=== PATIENT | female | born 1955 | race Caucasian/White ===

== ENCOUNTER 2023-07-06 20:32 | Inpatient (IN) | payer OTHER ==
[2023-07-06 23:21] LABS: #Basophils 0.09 10x3/uL (0.0-0.2); %Basophils 0.4 % (0.0-1.0); %Eosinophils 1.6 % (0.0-10.0); %Lymphocytes 7.6 % (21.0-51.0); %Monocytes 6.8 % (0.0-10.0); %Neutrophils 82.8 % (42.0-75.0); Hematocrit 33.7 % (36.0-47.0); Hemoglobin 11.5 g/dL (12.0-16.0); Mean Corpuscular HGB CONC 34.1 g/dL (32.0-36.0); Mean Corpuscular Hemoglobin 31.1 pg (27.0-31.0); Mean Corpuscular Volume 91.1 fL (78.0-98.0); Mean Platelet Volume 8.8 fL (7.4-10.4); Platelet Count 389 10x3/uL (130-400); RBC Distribution Width 16.2 % (11.5-14.5)
[2023-07-06 23:46] LABS: ALT (SGPT) 13 U/L (8-55); AST (SGOT) 18 U/L (5-34); Albumin 3.3 g/dL (3.4-4.8); Alkaline Phosphatase 154 U/L (40-110); Anion Gap 19 mmol/L (10-20); BUN (Urea Nitrogen) 18 mg/dL (9.8-20.1); Bilirubin, Total 0.3 mg/dL (0.2-1.2); Calc. Creatinine Clearance 0 mL/min (70-130); Calcium 9.6 mg/dL (7.8-10.44); Carbon Dioxide 22 mmol/L (23-31); Chloride 92 mmol/L (98-107); Estimated GFR 68; Globulin 4.8 g/dL (2.4-3.5); Glucose 95 mg/dL (80-115); Potassium 3.7 mmol/L (3.5-5.1); Protein, Total 8.1 g/dL (5.8-8.1); Sodium 129 mmol/L (136-145)
[2023-07-07] MEDS ORDERED: Ketamine In 0.9 % NaCl 50 MG/5 ML SYRINGE ONE (01:36)
[2023-07-07] MEDS ORDERED: Lidocaine 1% w/Epinephrine 1:100K 20 ML VIAL ONE (01:45)
[2023-07-07] MEDS ORDERED: Morphine 4 MG/ML VIAL ONE (03:16)
[2023-07-07] MEDS ORDERED: Sodium Chloride 0.9% 100 ML ONE (04:17)
[2023-07-07] MEDS ORDERED: cefTRIAXone (ROCEPHIN) 2 GM VIAL ONE (04:17)
[2023-07-07] MEDS ORDERED: Acetaminophen 500 MG TAB ONE (04:17)
[2023-07-07 04:50] LABS: Bilirubin Negative (Negative); Blood, Urine Large (Negative); Glucose, Urine (Dipstick) Negative (Negative); Ketone, Urine Negative (Negative); Leukocyte Large (Negative); Nitrite Positive (Negative); Protein, Urine (Dipstick) 100 mg/dL (Neg-Trace); Urobilinogen 0.2 mg/dL (Less than 2)
[2023-07-07 04:59] LABS: Clarity Hazy (Clear)
[2023-07-07 05:00] LABS: CAUTI Indications for Culture Immunosuppressed; RBC/HPF Greater than 50 HPF (0-3); Squamous Epithelial 0-3 HPF (0-3); WBC/HPF Greater than 50 HPF (0-3)
[2023-07-07 05:02] LABS: Bacteria/HPF 1+ HPF (None Seen)
[2023-07-07 05:03] LABS: Urine Culture Reflex Yes Yes
[2023-07-07 05:36] VITALS: BMI 22.0
[2023-07-07] MEDS: Amlodipine 10 MG TAB PO SCH ×2 (05:54→22:16)
[2023-07-07] MEDS: Levothyroxine Sodium 100 MCG TAB PO SCH (05:54)
[2023-07-07] MEDS: Morphine 2 MG/ML VIAL SLOW IVP PRN (06:35)
[2023-07-07] MEDS: Acetaminophen 325 MG TAB PO PRN (09:22)
[2023-07-07] MEDS: Cholecalciferol 1,000 UNITS (25 MCG) TAB PO SCH (09:22)
[2023-07-07] MEDS: Docusate 100 MG CAP PO SCH (09:22)
[2023-07-07] MEDS: Atenolol 50 MG TAB PO SCH (09:23)
[2023-07-07 09:33] LABS: ALT (SGPT) 12 U/L (8-55); AST (SGOT) 16 U/L (5-34); Albumin 2.9 g/dL (3.4-4.8); Alkaline Phosphatase 134 U/L (40-110); Anion Gap 15 mmol/L (10-20); BUN (Urea Nitrogen) 14 mg/dL (9.8-20.1); Bilirubin, Total 0.3 mg/dL (0.2-1.2); Calc. Creatinine Clearance 61 mL/min (70-130); Carbon Dioxide 22 mmol/L (23-31); Chloride 97 mmol/L (98-107); Estimated GFR 83; Globulin 4.3 g/dL (2.4-3.5); Glucose 103 mg/dL (80-115); Protein, Total 7.2 g/dL (5.8-8.1); Sodium 131 mmol/L (136-145)
[2023-07-07 10:36] LABS: Anisocytosis SLIGHT = 6-15 cells HPF (0-5); Band 4 % (5-11); Hypochromia SLIGHT = 6-15 cells HPF (0-5); Lymphocytes 8 % (21-51); Monocytes 1 % (0-10); Neutrophil 85 % (42-75); Platelet Adequacy Comment Platelets Normal; Polychromasia SLIGHT = 2-3 cells HPF (0-2); Stomatocytes SLIGHT = 2-5 cells HPF (0-1)
[2023-07-07] MEDS: Lorazepam 1 MG TAB PO PRN (11:47)
[2023-07-07 11:57] LABS: Hematocrit 31.3 % (36.0-47.0); Hemoglobin 10.9 g/dL (12.0-16.0); Mean Corpuscular HGB CONC 34.8 g/dL (32.0-36.0); Mean Corpuscular Hemoglobin 32.1 pg (27.0-31.0); Mean Corpuscular Volume 92.1 fL (78.0-98.0); Mean Platelet Volume 8.9 fL (7.4-10.4); Platelet Count 340 10x3/uL (130-400); RBC Distribution Width 16.1 % (11.5-14.5)
[2023-07-07] MEDS: Simvastatin 10 MG TAB PO SCH (22:18)
[2023-07-08] MEDS: cefTRIAXone\\ROCEPHIN 1 GM in Sodium Chloride 0.9% 100 ML IVPB SCH (03:37)
[2023-07-08 05:36] LABS: %Basophils 0.5 % (0.0-1.0); %Eosinophils 2.5 % (0.0-10.0); %Lymphocytes 8.1 % (21.0-51.0); %Monocytes 8.7 % (0.0-10.0); %Neutrophils 79.5 % (42.0-75.0); Hematocrit 31.1 % (36.0-47.0); Hemoglobin 10.4 g/dL (12.0-16.0); Mean Corpuscular HGB CONC 33.4 g/dL (32.0-36.0); Mean Corpuscular Hemoglobin 31.4 pg (27.0-31.0); Mean Platelet Volume 8.9 fL (7.4-10.4); Platelet Count 322 10x3/uL (130-400); RBC Distribution Width 16.4 % (11.5-14.5); Red Blood Cell (RBC) Count 3.31 mill/uL (4.20-5.40)
[2023-07-08 06:24] LABS: ALT (SGPT) 10 U/L (8-55); AST (SGOT) 15 U/L (5-34); Albumin 2.7 g/dL (3.4-4.8); Alkaline Phosphatase 128 U/L (40-110); Anion Gap 15 mmol/L (10-20); BUN (Urea Nitrogen) 11 mg/dL (9.8-20.1); Bilirubin, Total 0.4 mg/dL (0.2-1.2); Calc. Creatinine Clearance 61 mL/min (70-130); Calcium 8.9 mg/dL (7.8-10.44); Carbon Dioxide 23 mmol/L (23-31); Chloride 97 mmol/L (98-107); Estimated GFR 83; Glucose 87 mg/dL (80-115); Potassium 3.1 mmol/L (3.5-5.1); Protein, Total 6.7 g/dL (5.8-8.1); Sodium 132 mmol/L (136-145)
[2023-07-08] MEDS: Potassium Chloride 20 MEQ TAB PO SCH (08:56)
[2023-07-08 15:14] LABS: Anion Gap 16 mmol/L (10-20); BUN (Urea Nitrogen) 13 mg/dL (9.8-20.1); Calc. Creatinine Clearance 56 mL/min (70-130); Calcium 9.2 mg/dL (7.8-10.44); Carbon Dioxide 22 mmol/L (23-31); Chloride 98 mmol/L (98-107); Estimated GFR 74; Glucose 111 mg/dL (80-115); Potassium 3.8 mmol/L (3.5-5.1); Sodium 132 mmol/L (136-145)
[2023-07-08] MEDS ORDERED: AMPicillin 2 GM in Sodium Chloride 0.9% 100 ML IVPB SCH (18:00)
[2023-07-08] MEDS: Ampicillin 2 GM in Sodium Chloride 0.9% 100 ML IVPB SCH (18:55)
[2023-07-09 04:06] LABS: %Basophils 0.5 % (0.0-1.0); %Eosinophils 4.9 % (0.0-10.0); %Lymphocytes 7.6 % (21.0-51.0); %Monocytes 8.6 % (0.0-10.0); %Neutrophils 77.7 % (42.0-75.0); Hematocrit 31.4 % (36.0-47.0); Hemoglobin 10.7 g/dL (12.0-16.0); Mean Corpuscular HGB CONC 34.1 g/dL (32.0-36.0); Mean Corpuscular Hemoglobin 31.9 pg (27.0-31.0); Mean Corpuscular Volume 93.7 fL (78.0-98.0); Mean Platelet Volume 8.8 fL (7.4-10.4); Platelet Count 306 10x3/uL (130-400); RBC Distribution Width 16.6 % (11.5-14.5); Red Blood Cell (RBC) Count 3.35 mill/uL (4.20-5.40)
[2023-07-09 04:41] LABS: ALT (SGPT) 11 U/L (8-55); AST (SGOT) 16 U/L (5-34); Albumin 2.7 g/dL (3.4-4.8); Alkaline Phosphatase 127 U/L (40-110); Anion Gap 17 mmol/L (10-20); BUN (Urea Nitrogen) 13 mg/dL (9.8-20.1); Bilirubin, Total 0.3 mg/dL (0.2-1.2); Calc. Creatinine Clearance 61 mL/min (70-130); Calcium 8.8 mg/dL (7.8-10.44); Carbon Dioxide 20 mmol/L (23-31); Chloride 101 mmol/L (98-107); Estimated GFR 83; Glucose 96 mg/dL (80-115); Potassium 3.8 mmol/L (3.5-5.1); Protein, Total 6.7 g/dL (5.8-8.1); Sodium 134 mmol/L (136-145)
[2023-07-09 11:51] VITALS: BP 134/68; TEMP 97.6
== END 2023-07-09 13:09 | disposition home or self-care (01) | DRG 200 ==
LOC: ERS 20:32 → 2SE 07-07 03:45
PROVIDERS: ADMIT Emergency Medicine; ATTEND Emergency Medicine
PROC: 0W9930Z Drainage of Right Pleural Cavity with Drainage Device, Percutaneous Approach (ICD-10-PCS; principal; 2023-07-07)
PROC: 0T9B70Z Drainage of Bladder with Drainage Device, Via Natural or Artificial Opening (ICD-10-PCS; 2023-07-07)
DX: J93.9 Pneumothorax, unspecified (principal); N30.01 Acute cystitis with hematuria; D72.829 Elevated white blood cell count, unspecified; Z88.2 Allergy status to sulfonamides; Z88.8 Allergy status to other drugs, medicaments and biological substances; Z79.899 Other long term (current) drug therapy; I10 Essential (primary) hypertension; Z90.710 Acquired absence of both cervix and uterus; F41.9 Anxiety disorder, unspecified; E03.9 Hypothyroidism, unspecified; C67.9 Malignant neoplasm of bladder, unspecified
CPT/HCPCS: 36415; 71045; 74176; 80053; 81001; 85025; 87077; 87086; 87186; J0290; J0696; J2270; J2272; J3490

== ENCOUNTER 2023-09-06 14:50 | Inpatient (IN) | payer MEDICARE, OTHER ==
[~2023-09-06 14:50] MED LIST: Iopamidol-370 76% 500 ML MDV (1 ML CHARGE) ONE
[2023-09-06 15:35] LABS: Clarity Hazy (Clear); Leukocyte Unable to Interpret (Negative)
[2023-09-06 15:36] LABS: Bacteria/HPF 2+ HPF (None Seen); Bilirubin Unable to Interpret (Negative); Blood, Urine Unable to Interpret (Negative); CAUTI Indications for Culture Immunosuppressed; Glucose, Urine (Dipstick) Unable to Interpret mg/dL (Negative); Ketone, Urine Unable to Interpret mg/dL (Negative); Nitrite Unable to Interpret (Negative); Protein, Urine (Dipstick) Unable to Interpret mg/dL (Neg-Trace); RBC/HPF Greater than 50 HPF (0-3); Squamous Epithelial 0-3 HPF (0-3); Urobilinogen UNABLE TO INTERPRET mg/dL (Less than 2)
[2023-09-06 15:37] LABS: Urine Culture Reflex Yes Yes
[2023-09-06 16:03] LABS: INR-International Normal Ratio 1.7; PTT 33.6 sec (22.9-36.1)
[2023-09-06 16:09] LABS: Band 14 % (5-11); Hypochromia SLIGHT = 6-15 cells HPF (0-5); Lymphocytes 2 % (21-51); Macrocytosis SLIGHT = 6-15 cells HPF (0-5); Metamyelocyte 3 % (0-0); Monocytes 1 % (0-10); Myelocyte 2 % (0-0); Neutrophil 78 % (42-75); Platelet Adequacy Comment Significant Decrease; Polychromasia SLIGHT = 2-3 cells HPF (0-2); Target Cells SLIGHT = 2-5 cells HPF (0-1); Toxic Granulation SLIGHT
[2023-09-06 16:10] LABS: ALT (SGPT) 131 U/L (8-55); AST (SGOT) 272 U/L (5-34); Albumin 2.2 g/dL (3.4-4.8); Alkaline Phosphatase 716 U/L (40-110); Anion Gap 14 mmol/L (10-20); BUN (Urea Nitrogen) 55 mg/dL (9.8-20.1); Bilirubin, Total 2.3 mg/dL (0.2-1.2); Calc. Creatinine Clearance 0 mL/min (70-130); Calcium 8.3 mg/dL (7.8-10.44); Carbon Dioxide 22 mmol/L (23-31); Chloride 109 mmol/L (98-107); Estimated GFR 32; Glucose 101 mg/dL (80-115); Hematocrit 23.1 % (36.0-47.0); Hemoglobin 7.5 g/dL (12.0-16.0); Lipase 6 U/L (8-78); Magnesium 1.8 mg/dL (1.6-2.6); Mean Corpuscular HGB CONC 32.5 g/dL (32.0-36.0); Mean Corpuscular Hemoglobin 34.2 pg (27.0-31.0); Mean Corpuscular Volume 105.5 fL (78.0-98.0); Platelet Count 13 10x3/uL (130-400); Potassium 2.8 mmol/L (3.5-5.1); Protein, Total 5.2 g/dL (5.8-8.1); Red Blood Cell (RBC) Count 2.19 mill/uL (4.20-5.40); Reflex for Review?? YES; Sodium 142 mmol/L (136-145)
[2023-09-06 16:15] LABS: Troponin I 0.042 ng/mL (< 0.028)
[2023-09-06] MEDS ORDERED: Cefepime 1 GM VIAL ONE (16:23)
[2023-09-06] MEDS ORDERED: Cefepime 2 GM VIAL ONE (16:26)
[2023-09-06] MEDS ORDERED: Sodium Chloride 0.9% 100 ML ONE (16:29)
[2023-09-06] MEDS ORDERED: Vancomycin 1 GM/200 ML (FROZEN) BAG ONE (16:30)
[2023-09-06] MEDS ORDERED: Lorazepam 1 MG TAB PO PRN ×2 (20:28→21:03)
[2023-09-06] MEDS ORDERED: Acetaminophen 325 MG TAB PO PRN (20:28)
[2023-09-06] MEDS: NS 0.9% w/ 40 MEQ KCL 1,000 ML IV SCH (20:30)
[2023-09-06] MEDS ORDERED: SODIUM CHLORIDE 0.9% IVPB SCH (21:00)
[2023-09-06] MEDS ORDERED: VANCOMYCIN IVPB SCH (21:00)
[2023-09-06] MEDS ORDERED: Heparin 5,000 UNITS/ML VIAL SC SCH (21:00)
[2023-09-06 21:06] LABS: Lactic Acid 4.3 mmol/L (0.5-2.2)
[2023-09-06] MEDS ORDERED: Vancomycin Dose by Levels Sliding Scale (Wt <71) FS SCH (21:15)
[2023-09-06] MEDS ORDERED: traMADol HCl 50 MG TAB PO SCH (21:15)
[2023-09-06] MEDS ORDERED: traMADol HCl 50 MG TAB ONE (21:23)
[2023-09-06] MEDS: Sodium Chloride 0.9% 1,000 ML IV SCH (22:15)
[2023-09-06] MEDS ORDERED: Potassium Chloride 20 MEQ (100 mL) BAG ONE (22:17)
[2023-09-06] MEDS: Potassium Chloride 20 MEQ in Premix 1 BAG IVPB SCH (22:20)
[2023-09-06] MEDS ORDERED: Albumin 25% 100 ML ONE (23:26)
[2023-09-06] MEDS: Albumin 25% 25 GM (100 mL) BOT IVPB SCH (23:45)
[2023-09-06] MEDS ORDERED: Potassium Bicarbonate/Cit Ac 20 MEQ TAB ONE (23:57)
[2023-09-06] MEDS: Potassium Bicarbonate/Cit Ac 20 MEQ TAB PO SCH (23:57)
[2023-09-07 00:52] LABS: Lactic Acid 4.4 mmol/L (0.5-2.2)
[2023-09-07 01:23] LABS: Actual Bicarbonate (HCO3v) 22.6 mEq/L (22-28); Base Excess -2.9 mEq/L (-2.0 to +3.0); Calcium, Ionized (venous) 1.08 mmol/L (1.16-1.32); Chloride (VBG) 109 mmol/L (98-106); Hematocrit-VBG 20 % (36.0-47.0); Hemoglobin (Hb) 6.7 g/dL (11.7-16.1); Potassium (VBG) 2.71 mmol/L (3.70-5.30); Sodium 143 mmol/L (133-146); pH (venous) 7.344 (7.32-7.43)
[2023-09-07] MEDS ORDERED: Sodium Bicarb 50 MEQ/50 ML Abboject 8.4% SYRINGE IVP SCH (01:30)
[2023-09-07] MEDS: Vancomycin HCl 250 MG, Admixture Fee 1 EACH in Sodium Chloride 0.9% 100 ML IV SCH (02:04)
[2023-09-07] MEDS: Lactated Ringer's 1,000 ML IV SCH (02:44)
[2023-09-07] MEDS: fentaNYL 50 mcg/mL 1 mL Vial SLOW IVP SCH (06:14)
[2023-09-07] MEDS: Albumin 25% 25 GM (100 mL) BOT IVPB SCH (06:16)
[2023-09-07 08:18] VITALS: BMI 25.7
[2023-09-07] MEDS: Pantoprazole 40 MG VIAL IVP SCH (10:02)
[2023-09-07 10:06] LABS: ALT (SGPT) 98 U/L (8-55); AST (SGOT) 154 U/L (5-34); Albumin 2.7 g/dL (3.4-4.8); Alkaline Phosphatase 523 U/L (40-110); Anion Gap 11 mmol/L (10-20); BUN (Urea Nitrogen) 47 mg/dL (9.8-20.1); Bilirubin, Total 3.3 mg/dL (0.2-1.2); Calc. Creatinine Clearance 39 mL/min (70-130); Carbon Dioxide 22 mmol/L (23-31); Chloride 113 mmol/L (98-107); Estimated GFR 40; Glucose 87 mg/dL (80-115); Magnesium 1.7 mg/dL (1.6-2.6); Potassium 2.9 mmol/L (3.5-5.1); Protein, Total 4.7 g/dL (5.8-8.1); Sodium 143 mmol/L (136-145)
[2023-09-07 10:14] LABS: Hematocrit 22.9 % (36.0-47.0); Hemoglobin 7.8 g/dL (12.0-16.0); Mean Corpuscular HGB CONC 34.1 g/dL (32.0-36.0); Mean Corpuscular Hemoglobin 33.6 pg (27.0-31.0); Mean Corpuscular Volume 98.7 fL (78.0-98.0); Mean Platelet Volume 11.7 fL (7.4-10.4); Platelet Count 13 10x3/uL (130-400); RBC Distribution Width 20.4 % (11.5-14.5); Red Blood Cell (RBC) Count 2.32 mill/uL (4.20-5.40)
[2023-09-07] MEDS ORDERED: Electrolyte Replacement Protocol 1 EACH FS SCH (10:15)
[2023-09-07 10:19] LABS: Troponin I 0.803 ng/mL (< 0.028)
[2023-09-07] MEDS: Magnesium 2 GM/50 ML(in water) 2 GM in Premix 1 BAG IVPB SCH (10:38)
[2023-09-07] MEDS: Potassium Chloride 40 MEQ in Premix 1 BAG IVPB SCH ×3 (10:41→21:30)
[2023-09-07 10:46] LABS: Anisocytosis SLIGHT = 6-15 cells HPF (0-5); Band 6 % (5-11); Burr Cells SLIGHT = 2-5 cells HPF (0-1); Hypochromia SLIGHT = 6-15 cells HPF (0-5); Lymphocytes 3 % (21-51); Macrocytosis MODERATE=16-30 cells HPF (0-5); Monocytes 3 % (0-10); Neutrophil 87 % (42-75); Platelet Adequacy Comment Platelets Decreased; Polychromasia SLIGHT = 2-3 cells HPF (0-2); Smudge Cells 7.9 %; Target Cells SLIGHT = 2-5 cells HPF (0-1)
[2023-09-07] MEDS: Levothyroxine Sodium 100 MCG TAB PO SCH (11:47)
[2023-09-07] MEDS: Docusate 100 MG CAP PO SCH (11:47)
[2023-09-07] MEDS: Cholecalciferol 1,000 UNITS (25 MCG) TAB PO SCH (11:47)
[2023-09-07] MEDS: Saccharomyces boulardii 250 MG CAP PO SCH (11:47)
[2023-09-07] MEDS: fentaNYL 50 mcg/mL 1 mL Vial SLOW IVP PRN ×2 (14:30→19:43)
[2023-09-07] MEDS: Cefepime 1 GM in Sodium Chloride 0.9% 100 ML IVPB SCH (16:16)
[2023-09-07 17:26] LABS: Vancomycin, Trough 9.5 ug/mL
[2023-09-07] MEDS: Vancomycin HCl 750 MG in Sodium Chloride 0.9% 250 ML 250 ML IVPB SCH (19:44)
[2023-09-07 21:10] LABS: Potassium 3.2 mmol/L (3.5-5.1)
[2023-09-08] MEDS: Ondansetron PF 4 MG/2 ML Vial IVP PRN (01:40)
[2023-09-08 04:14] LABS: Hemoglobin 6.9 g/dL (12.0-16.0); Mean Corpuscular HGB CONC 34.5 g/dL (32.0-36.0); Mean Corpuscular Volume 98.5 fL (78.0-98.0); Platelet Count 20 10x3/uL (130-400); RBC Distribution Width 21.6 % (11.5-14.5); Red Blood Cell (RBC) Count 2.03 mill/uL (4.20-5.40)
[2023-09-08 04:27] LABS: PTT 37.6 sec (22.9-36.1)
[2023-09-08 04:28] LABS: Prothrombin Time 23.1 sec (12.0-14.7)
[2023-09-08 04:35] LABS: Anion Gap 18 mmol/L (10-20); BUN (Urea Nitrogen) 39 mg/dL (9.8-20.1); Calc. Creatinine Clearance 47 mL/min (70-130); Calcium 8.2 mg/dL (7.8-10.44); Carbon Dioxide 19 mmol/L (23-31); Chloride 117 mmol/L (98-107); Estimated GFR 51; Glucose 80 mg/dL (80-115); Potassium 3.8 mmol/L (3.5-5.1); Sodium 150 mmol/L (136-145)
[2023-09-08 04:37] LABS: Magnesium 2.1 mg/dL (1.6-2.6)
[2023-09-08 04:52] LABS: Anisocytosis SLIGHT = 6-15 cells HPF (0-5); Band 28 % (5-11); Hypochromia SLIGHT = 6-15 cells HPF (0-5); Lymphocytes 2 % (21-51); Metamyelocyte 1 % (0-0); Monocytes 11 % (0-10); Neutrophil 54 % (42-75); Nucleated RBC (Manual Ct) 9 % (0); Platelet Adequacy Comment Platelets Decreased; Poikilocytosis SLIGHT = 6-15 cells HPF (0-5); Polychromasia SLIGHT = 2-3 cells HPF (0-2); Promyelocytes 4 % (0-0); Target Cells SLIGHT = 2-5 cells HPF (0-1)
[2023-09-08] MEDS: Potassium Chloride 10 MEQ in Dextrose 5% in Water 1,000 ML IV SCH (05:00)
[2023-09-08] MEDS: Cefepime 1 GM in Sodium Chloride 0.9% 100 ML IVPB SCH (09:08)
[2023-09-08 10:19] LABS: Hematocrit 19.4 % (36.0-47.0); Hemoglobin 6.6 g/dL (12.0-16.0); Platelet Count 20 10x3/uL (130-400)
[2023-09-08 10:27] LABS: Vancomycin, Trough 13.5 ug/mL
[2023-09-08 10:29] LABS: ALT (SGPT) 82 U/L (8-55); AST (SGOT) 151 U/L (5-34); Albumin 2.8 g/dL (3.4-4.8); Alkaline Phosphatase 458 U/L (40-110); Bilirubin, Direct 3.1 mg/dL (0.1-0.3); Bilirubin, Total 4.2 mg/dL (0.2-1.2); INR-International Normal Ratio 2.5; PTT 36.1 sec (22.9-36.1); Protein, Total 4.6 g/dL (5.8-8.1); Prothrombin Time 26.9 sec (12.0-14.7)
[2023-09-08] MEDS ORDERED: EPINEPHrine 1 MG/ML AMP IM PRN (10:34)
[2023-09-08] MEDS: Lorazepam 2 MG/ML VIAL SLOW IVP PRN (11:35)
[2023-09-08] MEDS: Dextrose 5% in Water 1,000 ML IV SCH (12:08)
[2023-09-08 14:40] LABS: Hematocrit 25.9 % (36.0-47.0); Hemoglobin 8.9 g/dL (12.0-16.0); Platelet Count 22 10x3/uL (130-400)
[2023-09-08 17:05] VITALS: BP 135/57
[2023-09-08] MEDS: Dronabinol 2.5 MG CAP PO SCH (17:08)
[2023-09-08 17:33] LABS: Hemoglobin 10.2 g/dL (12.0-16.0); Platelet Count 19 10x3/uL (130-400)
[2023-09-08 17:45] LABS: INR-International Normal Ratio 2.4; PTT 36.4 sec (22.9-36.1); Prothrombin Time 26.2 sec (12.0-14.7)
[2023-09-08 19:31] LABS: Anion Gap 14 mmol/L (10-20); BUN (Urea Nitrogen) 38 mg/dL (9.8-20.1); Calc. Creatinine Clearance 43 mL/min (70-130); Carbon Dioxide 22 mmol/L (23-31); Chloride 118 mmol/L (98-107); Estimated GFR 47; Glucose 122 mg/dL (80-115); Potassium 3.8 mmol/L (3.5-5.1); Sodium 150 mmol/L (136-145)
[2023-09-09 00:04] LABS: Anion Gap 15 mmol/L (10-20); BUN (Urea Nitrogen) 37 mg/dL (9.8-20.1); Calc. Creatinine Clearance 44 mL/min (70-130); Carbon Dioxide 21 mmol/L (23-31); Chloride 117 mmol/L (98-107); Estimated GFR 48; Glucose 137 mg/dL (80-115); Potassium 3.6 mmol/L (3.5-5.1); Sodium 149 mmol/L (136-145)
[2023-09-09 05:39] LABS: INR-International Normal Ratio 2.1; PTT 36.9 sec (22.9-36.1); Prothrombin Time 23.4 sec (12.0-14.7)
[2023-09-09 05:45] LABS: Hematocrit 29.3 % (36.0-47.0); Hemoglobin 10.4 g/dL (12.0-16.0); Mean Corpuscular HGB CONC 35.5 g/dL (32.0-36.0); Mean Corpuscular Hemoglobin 32.2 pg (27.0-31.0); Mean Corpuscular Volume 90.7 fL (78.0-98.0); Mean Platelet Volume 12.2 fL (7.4-10.4); Platelet Count 21 10x3/uL (130-400); RBC Distribution Width 19.6 % (11.5-14.5); Red Blood Cell (RBC) Count 3.23 mill/uL (4.20-5.40)
[2023-09-09 05:54] LABS: ALT (SGPT) 99 U/L (8-55); AST (SGOT) 148 U/L (5-34); Albumin 2.6 g/dL (3.4-4.8); Alkaline Phosphatase 515 U/L (40-110); Anion Gap 14 mmol/L (10-20); BUN (Urea Nitrogen) 36 mg/dL (9.8-20.1); Bilirubin, Direct 4.2 mg/dL (0.1-0.3); Bilirubin, Total 6.4 mg/dL (0.2-1.2); Calc. Creatinine Clearance 45 mL/min (70-130); Carbon Dioxide 21 mmol/L (23-31); Chloride 115 mmol/L (98-107); Estimated GFR 49; Glucose 137 mg/dL (80-115); Potassium 3.4 mmol/L (3.5-5.1); Protein, Total 4.7 g/dL (5.8-8.1); Sodium 147 mmol/L (136-145)
[2023-09-09 06:17] LABS: Anisocytosis SLIGHT = 6-15 cells HPF (0-5); Band 31 % (5-11); Eosinophils 1 % (0-10); Hypochromia SLIGHT = 6-15 cells HPF (0-5); Lymphocytes 4 % (21-51); Monocytes 4 % (0-10); Myelocyte 3 % (0-0); Neutrophil 56 % (42-75); Nucleated RBC (Manual Ct) 11 % (0); Platelet Adequacy Comment Platelets Decreased; Polychromasia SLIGHT = 2-3 cells HPF (0-2); Promyelocytes 1 % (0-0)
[2023-09-09] MEDS: cefTRIAXone\\ROCEPHIN 2 GM in Sodium Chloride 0.9% 100 ML IVPB SCH (09:30)
[2023-09-09] MEDS: Potassium Chloride 20 MEQ in Premix 1 BAG IVPB SCH (10:21)
[2023-09-09] MEDS: fentaNYL 50 mcg/mL 1 mL Vial SLOW IVP PRN (11:48)
[2023-09-09] MEDS ORDERED: Dronabinol 2.5 MG CAP FS SCH (14:10)
[2023-09-09] MEDS ORDERED: Acetaminophen 325 MG TAB PER TUBE PRN (14:10)
[2023-09-09] MEDS: Lorazepam 2 MG/ML VIAL SLOW IVP PRN (21:12)
[2023-09-09] MEDS: Metoprolol Tartrate 5 MG (5 mL) VIAL IVP SCH (23:53)
[2023-09-10] MEDS: Levothyroxine Sodium 100 MCG TAB PER TUBE SCH (06:03)
[2023-09-10 07:10] LABS: ALT (SGPT) 110 U/L (8-55); AST (SGOT) 200 U/L (5-34); Albumin 2.5 g/dL (3.4-4.8); Alkaline Phosphatase 649 U/L (40-110); Bilirubin, Direct 3.6 mg/dL (0.1-0.3); Bilirubin, Total 5.9 mg/dL (0.2-1.2); Protein, Total 4.8 g/dL (5.8-8.1)
[2023-09-10 07:23] LABS: Anion Gap 16 mmol/L (10-20); BUN (Urea Nitrogen) 37 mg/dL (9.8-20.1); Calc. Creatinine Clearance 48 mL/min (70-130); Calcium 7.8 mg/dL (7.8-10.44); Carbon Dioxide 19 mmol/L (23-31); Chloride 113 mmol/L (98-107); Estimated GFR 50; Glucose 98 mg/dL (80-115); Potassium 4.1 mmol/L (3.5-5.1); Sodium 144 mmol/L (136-145)
[2023-09-10 07:40] LABS: Band 12 % (5-11); Burr Cells SLIGHT = 2-5 cells HPF (0-1); Lymphocytes 3 % (21-51); Monocytes 4 % (0-10); Neutrophil 81 % (42-75); Nucleated RBC (Manual Ct) 5 % (0); Platelet Adequacy Comment Significant Decrease; Polychromasia SLIGHT = 2-3 cells HPF (0-2); Schistocytes SLIGHT = 2-5 cells HPF (0-1); Target Cells SLIGHT = 2-5 cells HPF (0-1)
[2023-09-10 07:41] LABS: Hemoglobin 10.8 g/dL (12.0-16.0); Mean Corpuscular HGB CONC 34.8 g/dL (32.0-36.0); Mean Corpuscular Hemoglobin 32.3 pg (27.0-31.0); Mean Corpuscular Volume 92.8 fL (78.0-98.0); Platelet Count 17 10x3/uL (130-400); RBC Distribution Width 22.2 % (11.5-14.5); Red Blood Cell (RBC) Count 3.34 mill/uL (4.20-5.40)
[2023-09-10] MEDS: Docusate 100 MG CAP PER TUBE SCH (08:45)
[2023-09-10] MEDS: Cholecalciferol 1,000 UNITS (25 MCG) TAB PER TUBE SCH (08:45)
[2023-09-10] MEDS: Saccharomyces boulardii 250 MG CAP PER TUBE SCH (08:45)
[2023-09-10] MEDS: fentaNYL 25 mcg Patch TD SCH (10:08)
[2023-09-10 12:25] VITALS: TEMP 98
[2023-09-10 14:17] VITALS: BMI 26.9
== END 2023-09-10 19:30 | disposition hospice, home (50) | DRG 698 ==
LOC: ERS 14:50 → ERHOLD 19:51 → CCU 09-07 03:56 → IMCU/EMU 09-09 20:11
PROVIDERS: ADMIT Internal Medicine; ATTEND Family Medicine
PROC: 30233J1 Transfusion of Nonautologous Serum Albumin into Peripheral Vein, Percutaneous Approach (ICD-10-PCS; 2023-09-06)
PROC: 3E03329 Introduction of Other Anti-infective into Peripheral Vein, Percutaneous Approach (ICD-10-PCS; 2023-09-06)
PROC: 06HY33Z Insertion of Infusion Device into Lower Vein, Percutaneous Approach (ICD-10-PCS; principal; 2023-09-07)
PROC: 30233N1 Transfusion of Nonautologous Red Blood Cells into Peripheral Vein, Percutaneous Approach (ICD-10-PCS; 2023-09-07)
DX: T83.512A Infection and inflammatory reaction due to nephrostomy catheter, initial encounter (principal); A41.9 Sepsis, unspecified organism; R65.20 Severe sepsis without septic shock; E43 Unspecified severe protein-calorie malnutrition; N39.0 Urinary tract infection, site not specified; C78.00 Secondary malignant neoplasm of unspecified lung; C78.7 Secondary malignant neoplasm of liver and intrahepatic bile duct; N17.9 Acute kidney failure, unspecified; I5A Non-ischemic myocardial injury (non-traumatic); E87.20 Acidosis, unspecified; E87.0 Hyperosmolality and hypernatremia; D61.818 Other pancytopenia; C67.9 Malignant neoplasm of bladder, unspecified; T83.511A Infection and inflammatory reaction due to indwelling urethral catheter, initial encounter; I10 Essential (primary) hypertension; F41.9 Anxiety disorder, unspecified; E03.9 Hypothyroidism, unspecified; D64.9 Anemia, unspecified; R53.1 Weakness; R53.81 Other malaise; E87.6 Hypokalemia; Z66 Do not resuscitate; Z51.5 Encounter for palliative care; E83.42 Hypomagnesemia; Y83.8 Other surgical procedures as the cause of abnormal reaction of the patient, or of later complication, without mention of misadventure at the time of the procedure; K72.10 Chronic hepatic failure without coma; Z90.710 Acquired absence of both cervix and uterus; Z98.890 Other specified postprocedural states; Z68.26 Body mass index [BMI] 26.0-26.9, adult; Z87.891 Personal history of nicotine dependence; Z88.1 Allergy status to other antibiotic agents; Z88.2 Allergy status to sulfonamides; Z79.899 Other long term (current) drug therapy
CPT/HCPCS: 36415; 36430; 51702; 71045; 71275; 74018; 74177; 80048; 80053; 80076; 80202; 81001; 82140; 82805; 83605; 83690; 83735; 83880; 84443; 84484; 85025; 85060; 85610; 85730; 86850; 86900; 86901; 87040; 87077; 87086; 93005; 93306; 96361; 96365; 96367; 96375; C9113; J0692; J0696; J2060; J2405; J3010; J3370; J3370-JW; J3475; J3480; J3490; J7050; J7070; J7120; P9016; P9047; Q9967